=== PATIENT | female | born 1995 | race Caucasian/White ===

== ENCOUNTER 2018-10-07 12:22 | Emergency (ER) | payer BC ==
--- NOTE | 2018-10-07 12:49 | RAD ---
Portable frontal chest radiograph: 10/07/2018 COMPARISON: None HISTORY: Injury, trauma, pain FINDINGS: Lungs are clear. Heart and mediastinal contours appear within normal limits. IMPRESSION: No acute findings.
[2018-10-07] MEDS ORDERED: Ketorolac Tromethamine 30 MG/ML VIAL ONE (13:02)
== END 2018-10-07 13:10 | disposition home or self-care (01) ==
LOC: ERS 12:22
DX: S20.01XA Contusion of right breast, initial encounter (principal); S00.83XA Contusion of other part of head, initial encounter; W55.12XA Struck by horse, initial encounter
CPT/HCPCS: 71045; 96372; J1885